=== PATIENT | male | born 1975 | race Hispanic/Latino ===

== ENCOUNTER 2020-09-03 06:33 | Day surgery (SDC) | payer OTHER ==
[2020-09-03] MEDS ORDERED: ASPIRIN EC 325 MG TAB PO ONE (06:52)
[2020-09-03] MEDS ORDERED: SODIUM CHLORIDE 0.9% 500 ML 500 ML IV SCH (07:00)
[2020-09-03 07:10] LABS: Basophils # (Auto) 0.1 K/mm3 (0.0-0.1); Basophils % (Auto) 1.4 % (0.0-1.8); Eosinophils # (Auto) 0.5 K/mm3 (0.0-0.4); Eosinophils % (Auto) 6.5 % (0.0-4.3); Hematocrit 48.2 % (35.5-45.6); Hemoglobin 16.6 gm/dl (11.8-15.2); Lymphocytes # (Auto) 2.6 K/mm3 (1.2-5.4); Lymphocytes % (Auto) 33.3 % (13.4-35.0); Mean Corpuscular HGB Conc 34 % (32-34); Mean Corpuscular Volume 85 fl (84-94); Monocytes # (Auto) 0.9 K/mm3 (0.0-0.8); Monocytes % (Auto) 11.6 % (0.0-7.3); Platelet Count 243 K/mm3 (140-440); Red Blood Count 5.68 M/mm3 (3.65-5.03); Red Cell Distribution Width 13.7 % (13.2-15.2)
[2020-09-03 07:19] LABS: INR 0.97 (0.87-1.13)
[2020-09-03 07:20] LABS: BUN/Creatinine Ratio 17; Blood Urea Nitrogen 15 mg/dL (9-20); Hemolysis Index 1; Partial Thromboplastin Time 29.3 Sec. (24.2-36.6)
[2020-09-03] MEDS ORDERED: HEPARIN/NS 5000 UNIT/500ML 1,000 ML IR ONE (08:12)
[2020-09-03] MEDS: fentaNYL 100 MCG/2 ML INJ ONE ×2 (08:25→08:33)
[2020-09-03] MEDS: MIDAZOLAM 2 MG/2 ML INJ ONE ×2 (08:26→08:33)
[2020-09-03] MEDS: LIDOCAINE (2%) 20 MG/1 ML VIAL 20 ML MDV INFILTRATI ONE ×2 (08:26→08:43)
[2020-09-03] MEDS: HEPARIN 10,000 UNITS/10 ML VIAL ONE ×2 (08:27→08:45)
[2020-09-03] MEDS: VERAPAMIL 5 MG/2 ML INJ ONE ×2 (08:27→08:45)
[2020-09-03] MEDS ORDERED: ACETAMINOPHEN 325 MG TAB PO ONE (09:23)
--- NOTE | 2020-09-03 09:29 | Cardiac Catherization Report ---
INDICATION FOR PROCEDURE: A 45-year-old gentleman with history of hypertension, hyperlipidemia, atypical chest pains, underwent a stress EKG, which showed evidence of ischemia because of this atypical chest pains. The patient is a regional flatbed truck driver, wants to have evaluation to rule out any underlying coronary artery disease. Echocardiogram showed left ventricular size and thickness normal. The EF was found to be normal 55-60%. The patient is scheduled for cardiac catheterization for definitive diagnosis and treatment. The patient is aware of the procedure, potential complications and alternatives of therapy available. DESCRIPTION OF PROCEDURE: The patient was brought to the catheterization laboratory in a fasting condition. The right wrist area and forearm thoroughly cleansed with Betadine solution. Sterile drapes were applied. The patient was evaluated for moderate sedation and was felt to be appropriate candidate for moderate sedation and received IV Versed and fentanyl. Subsequently, after giving local anesthesia, right radial artery access was obtained using 21-gauge arterial puncture needle. A 5-Mal[place] standard sheath was introduced. 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 This catheter was exchanged for JR4 catheter and using Glidewire, was advanced into the ascending aorta. A JR4 catheter was used to obtain the angiograms of the right coronary artery and left ventriculogram done in [place] projection using hand injection. Subsequently, JL3.5 catheter was used to obtain the angiograms of the left coronary artery. After obtaining the angiograms of the right and left coronary arteries and left ventriculogram, catheter and sheath were removed. Good hemostasis was achieved with application of radial band. No untoward complications were noted. The patient tolerated the sedation well. The patient was monitored throughout the procedure with pulse oximetry, EKG monitoring and hemodynamic monitoring. The patient sedation started at 8:33 a.m. and ended at 9:03 a.m. At the end of the procedure, the patient is breathing normally, communicating normally with no focal deficits. No untoward complications were noted. The patient was transferred to the room in stable condition. Following findings were noted. HEMODYNAMICS: 1. Opening aortic pressure 115/80. Left ventricular pressure 115/20. No gradient across the aortic valve. Estimated ejection fraction 55%. 2. Left ventriculogram done in [place] projection showed normal-sized left ventricle with normal contractility. Only limited amount of dye was injected. Hence, mitral regurgitation could not be evaluated. 3. Right coronary artery codominant vessel arises normally from anterior cusp. Angiographically smooth and normal. 4. Left coronary artery arises normally from left coronary cusp. Left main is short, LAD which is relatively small vessel and its branches, circumflex artery and its branch are angiographically smooth and normal. FINAL IMPRESSION: 1. Normal-sized left ventricle with normal contractility. End-diastolic pressure mildly elevated at 20 mmHg. 2. Normal coronary anatomy with RCA being dominant vessel. 3. 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 Manipulation was difficult. Otherwise, procedure was uncomplicated. No untoward complications were noted. Findings were explained to the patient. He was explained of the normal angiographic findings and was encouraged to continue risk factor modification. He understands. JOB# [id number] PEDRO/RABIA IQBAL
--- NOTE | 2020-09-03 12:23 | Short Stay Summary ---
Short Stay Documentation Date of service: 09/03/20 - History H&P: obtained from office - Allergies and Medications Current Medications: Allergies No Known Allergies Allergy (Verified 09/03/20 06:52) Home Medications Medication Instructions Recorded Confirmed Last Taken Type Aspirin EC [Halfprin EC] 81 mg PO QDAY 09/03/20 09/03/20 09/02/20 History 81 mg AtorvaSTATin [Lipitor] 20 mg PO DAILY 09/03/20 09/03/20 09/02/20 History 20 mg Metoprolol [Lopressor TAB] 50 mg PO BID 09/03/20 09/03/20 09/03/20 History 50 mg Omeprazole 20 mg PO BID 09/03/20 09/03/20 09/02/20 History 20 mg Zolpidem [Ambien] 10 mg PO QHS PRN 09/03/20 09/03/20 09/02/20 History 10 mg lisinopriL [Zestril TAB] 20 mg PO DAILY 09/03/20 09/03/20 09/02/20 History 20 mg Active Medications Sodium Chloride (Nacl 0.9% 500 Ml) 500 mls @ 50 mls/hr IV DIRECT MEGAN Stop: 09/03/20 16:59 Last Admin: 09/03/20 07:26 Dose: 50 mls/hr Documented by: - Brief post op/procedure progress note Date of procedure: 09/03/20 Pre-op diagnosis: abnormal stress test Post-op diagnosis: other (normal coronary arteries) Procedure: C - see dictated cath report Anesthesia: local Estimated blood loss: none Condition: stable - Disposition Condition at discharge: Good Disposition: [id number] TO HOME OR SELFCARE - Discharge Diagnoses (1) Normal coronary arteries Status: Chronic (2) HTN (hypertension) Status: Chronic (3) Hyperlipidemia Status: Chronic Short Stay Discharge Plan Activity: advance as tolerated Diet: low fat, low cholesterol, low salt Wound: open to air, keep clean and dry, per your surgeon's advice Follow up with: LUNA MARSHALL DO [Primary Care Provider] - 7 Days Forms: CardCath PCI D/C Instructions
[2020-09-03 12:24] VITALS: BP 144/73
== END 2020-09-03 13:30 | disposition home or self-care (01) ==
LOC: CATHLABREC 06:33
PROVIDERS: ATTEND Internal Medicine
DX: R07.89 Other chest pain (principal); R94.39 Abnormal result of other cardiovascular function study; R94.31 Abnormal electrocardiogram [ECG] [EKG]; E78.01 Familial hypercholesterolemia; G47.33 Obstructive sleep apnea (adult) (pediatric); I10 Essential (primary) hypertension; E78.5 Hyperlipidemia, unspecified; E66.9 Obesity, unspecified; K21.9 Gastro-esophageal reflux disease without esophagitis; Z98.890 Other specified postprocedural states; Z83.3 Family history of diabetes mellitus; Z79.899 Other long term (current) drug therapy; Z79.82 Long term (current) use of aspirin; Z87.891 Personal history of nicotine dependence; Z82.61 Family history of arthritis; Z84.1 Family history of disorders of kidney and ureter; Z68.36 Body mass index [BMI] 36.0-36.9, adult; Z82.49 Family history of ischemic heart disease and other diseases of the circulatory system
CPT/HCPCS: 36415; 80048; 85025; 85610; 85730; 93005; 93458; 99156; 99157; C1769; C1894; J1644; J2250; J3010; J7040; Q9967